=== PATIENT | female | born 1945 | race Caucasian/White ===

== ENCOUNTER → 2022-02-26 | Outpatient (CLI) | payer MEDICARE, BC ==
[~2022-02-26] MED LIST: CATHETER FLUSH 10 ML SYR IV PRN; HOLD METFORMIN - RECEIVED CONTRAST 20 ML VIAL IV SCH; IOHEXOL 350 MG/ML 100 ML (OMNIPAQUE 350) VIAL IV ONE; NS 100 ML (IVPB) BAG IV ONE
--- NOTE | 2022-02-26 15:06 | Diagnostic Imaging Report ---
PROCEDURE: CT abdomen and pelvis with and without contrast. TECHNIQUE: Precontrast acquisitions were acquired through the abdomen and pelvis. Multiple contiguous axial images were obtained through the abdomen and pelvis after the administration of intravenous contrast. Auto Exposure Controls were utilized during the CT exam to meet ALARA standards for radiation dose reduction. INDICATION: Renal mass. COMPARISON: No prior studies are available for comparison. The lung bases are clear. The liver contains a tiny low-attenuation lesion in the right lobe, too small to characterize but perhaps a cyst. The gallbladder is unremarkable. There is no biliary ductal dilatation. The pancreas and spleen are unremarkable. No adrenal mass is identified. The right kidney is unremarkable. The left kidney does contain a solid mass posteriorly in the midportion measuring 3.0 cm in diameter. This is peripherally enhancing and does show some central low-attenuation consistent with central necrosis. This is suggestive of a renal cell cancer carcinoma. The left renal vein appears to be widely patent without evidence of renal vein thrombosis. No central retroperitoneal or mesenteric lymphadenopathy is seen. Aorta is nonaneurysmal. There is a small fat-containing umbilical hernia. Bowel loops are normal caliber. Extensive diverticulosis of the descending and sigmoid colon is noted without evidence of acute diverticulitis. No free fluid or fluid collection. No pelvic lymphadenopathy is identified. The bony structures appear nonacute. IMPRESSION: 1. Centrally necrotic solid mass posterior aspect left mid kidney concerning for renal cell carcinoma. There is no evidence of abdominal or pelvic lymphadenopathy or metastatic disease. 2. Uncomplicated diverticulosis. Dictated by: Dictated on workstation # [id number]
== END ==
LOC: RAD 12:45
PROVIDERS: ATTEND Internal Medicine Nephrology
DX: K57.30 Diverticulosis of large intestine without perforation or abscess without bleeding (principal)
CPT/HCPCS: 74178

== ENCOUNTER → 2022-09-14 | Outpatient (CLI) | payer MEDICARE ==
[2022-09-14 11:42] LABS: CREATININE SERUM 1.37 MG/DL (0.60-1.30)
--- NOTE | 2022-09-14 13:55 | Diagnostic Imaging Report ---
PROCEDURE: CT abdomen with and without contrast. TECHNIQUE: Multiple contiguous axial CT images of the abdomen were obtained prior to and after intravenous administration of iodinated contrast. Auto Exposure Controls were utilized during the CT exam to meet ALARA standards for radiation dose reduction. INDICATION: Renal mass. COMPARISON: 02/26/2022. FINDINGS: The exophytic solid left renal mass posteriorly directed with central intratumoral necrosis today measures 3.3 x 3.5 cm, previously 2.8 x 3.1 cm. The renal veins and cava remain patent. There is no adrenal mass. No enlarged, distorted, or suspicious retroperitoneal or mesenteric lymph nodes. No suspicious lytic or sclerotic abdominal bony lesion. The liver, spleen, adrenals, and pancreas are unremarkable. There is no ascites. There is no hydronephrosis. The right kidney is unobstructed and unremarkable. There is no additional solid or suspicious renal mass. No findings of hemorrhage. IMPRESSION: Presumptive left renal cell carcinoma shows mildly increased size but no findings of abdominal metastatic disease. Dictated by: Dictated on workstation # [id number]
== END ==
LOC: RAD 11:04
PROVIDERS: ATTEND Specialist
DX: C64.2 Malignant neoplasm of left kidney, except renal pelvis (principal)
CPT/HCPCS: 36415; 74170; 82565; 84520